=== PATIENT | female | born 1955 | race Caucasian/White ===

== ENCOUNTER 2017-06-29 14:28 | Emergency (ER) | payer OTHER ==
[~2017-06-29] VITALS: Ht 154.9 cm; Wt 100.0 kg
[2017-06-29] MEDS ORDERED: methylPREDNISolone SOD SUCC 125 MG/2 ML IVPush ONE (15:00)
[2017-06-29] MEDS ORDERED: methylPREDNISolone SOD SUCC 125 MG/2 ML ONE (15:34)
[2017-06-29 16:10] VITALS: BP 112/74
== END 2017-06-29 17:19 | disposition home or self-care (01) ==
LOC: ED 16:40
DX: L25.8 Unspecified contact dermatitis due to other agents (principal); T45.0X5A Adverse effect of antiallergic and antiemetic drugs, initial encounter; Y92.89 Other specified places as the place of occurrence of the external cause; M54.9 Dorsalgia, unspecified; G89.29 Other chronic pain
CPT/HCPCS: 93005; 96374; 99284; J2930

== ENCOUNTER 2018-04-26 21:20 | Emergency (ER) | payer SELFPAY ==
[~2018-04-26] VITALS: Ht 154.9 cm; Wt 84.4 kg
[2018-04-26 21:28] VITALS: BP 156/97
== END 2018-04-26 22:19 | disposition home or self-care (01) ==
LOC: ED 21:45
DX: J20.8 Acute bronchitis due to other specified organisms (principal); B97.89 Other viral agents as the cause of diseases classified elsewhere; R07.89 Other chest pain
CPT/HCPCS: 71046; 93005; 99284